=== PATIENT | female | born 1990 | race Caucasian/White ===

== ENCOUNTER 2019-09-27 06:51 | Inpatient (IN) | payer OTHER ==
[2019-09-27] MEDS ORDERED: Sodium Chloride 0.9% 10 ML Syringe FLUSH PRN ×2 (08:11→17:22)
[2019-09-27] MEDS ORDERED: fentaNYL 100 MCG/2 ML SDV IVPUSH PRN (08:11)
[2019-09-27] MEDS ORDERED: Acetaminophen 325 MG Tab PO PRN (08:11)
--- NOTE | 2019-09-27 08:30 | CRLUS ---
Indication: Assess well-being via a biophysical profile prior to induction. Technique: Sonography of the gravid uterus was performed. The examination was performed as a routine biophysical profile. Comparison: None Findings: For breathing movements, a score of 2 was achieved. For gross body movements, a score of 2 was achieved. For tone, a score of 2 was achieved. For amniotic fluid volumes, a score of 2 was achieved. The total score is 8 out of 8 The total CHELA is 12.4 centimeters which is normal heart rate is 124 beats per minute which is normal Current position is cephalic Impression: The biophysical profile score is 8 out of 8. Single live intrauterine gestation that is cephalic. Heart rate 124 bpm which is normal. Total CHELA 12.4 centimeters which is normal Dictated by Randy Orozco MD @ Sep 27 2019 8:26AM Signed by Dr. Randy Orozco @ Sep 27 2019 8:29AM
[2019-09-27] MEDS ORDERED: Misoprostol 50 MCG (1/2 of 100 MCG) Tab VAG ONE ×2 (08:45→13:00)
--- NOTE | 2019-09-27 08:57 | PCM.LDHP ---
L&D History of Present Illness - General Date of Service: 09/27/19 Admit Problem/Dx: Patient Status Order with Admit Dx/Problem 09/27/19 08:11 Patient Status [ADT] Routine Admission Diagnosis/Problem Admission Diagnosis/Problem Source of Information: Patient History Limitations: Reports: No Limitations - Related Data Allergies/Adverse Reactions: Allergies Allergy/AdvReac Type Severity Reaction Status Date / Time cat dander Allergy Rash Verified 09/27/19 08:25 cat's claw Allergy Rash Verified 09/27/19 08:25 dust Allergy Shortness Uncoded 09/27/19 08:25 of Breath Home Medications: Home Meds Iron,Carbonyl [Iron Chews] 09/27/19 [History] Mv-Mn/Iron/FA/Herbal/Digestive [ One Tablet] 09/27/19 [History] Past Medical History - Past Health History Medical/Surgical History: Denies 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: Neurological History: Reports: Concussion, Head Trauma - Infectious Disease History Infectious Disease History: Reports: Chicken Pox - Past Surgical History HEENT Surgical History: Reports: LASIK, Oral Surgery Neurological Surgical History: Reports: None Social & Family History - Family History Family Medical History: Noncontributory - Tobacco Use Smoking Status *Q: Never Smoker Second Hand Smoke Exposure: No - Caffeine Use Caffeine Use: Reports: Coffee, Soda, Tea - Recreational Drug Use Recreational Drug Use: No H&P Review of Systems - Review of Systems: Review Of Systems: See Below General: Reports: No Symptoms HEENT: Reports: No Symptoms Pulmonary: Reports: No Symptoms Cardiovascular: Reports: No Symptoms Gastrointestinal: Reports: No Symptoms Genitourinary: Reports: No Symptoms Musculoskeletal: Reports: No Symptoms Skin: Reports: No Symptoms Psychiatric: Reports: No Symptoms Neurological: Reports: No Symptoms Hematologic/Lymphatic: Reports: No Symptoms Immunologic: Reports: No Symptoms L&D Exam - Exam Exam: See Below - Vital Signs Weight: 84.368 kg - OB Specific Movement: Active Heart Tones: Present Heart Rate (FHR) Variability: Moderate (6-25 bmp) Presentation: Vertex - Castanon Score Castanon Score Cervix Position: Midposition Castanon Score Consistency: Soft Castanon Score Effacement: 51-70% Castanon Score Dilation: 1-2 cm Castanon Score 's Station: -2 Castanon Score Total: 7 - Exam General: Alert, Oriented HEENT: PERRLA, Conjunctiva Clear, EACs Clear, EOMI, Hearing Intact, Mucosa Moist & [place], Nares Patent, Normal Nasal Septum, Posterior Pharynx Clear, Pupils Equal, Pupils Reactive, TMs Clear Neck: Supple, Trachea Midline Lungs: Clear to Auscultation, Normal Respiratory Effort Cardiovascular: Regular Rate, Regular Rhythm GI/Abdominal Exam: Normal Bowel Sounds, Soft, Non-Tender, No Organomegaly, No Distention, No Abnormal Bruit, No Mass, Pelvis Stable Rectal Exam: Normal Exam, Normal Rectal Tone Genitourinary: Normal external exam, Normal bimanual exam, Normal speculum exam Back Exam: Normal Inspection, Full Range of Motion Extremities: Normal Inspection, Normal Range of Motion, Non-Tender, No Pedal Edema, Normal Capillary Refill Skin: Warm, Dry, Intact Neurological: Cranial Nerves Intact, Reflexes Equal Bilateral Psychiatric: Alert, Normal Affect, Normal Mood - Patient Data Lab Results Last 24 hrs: Laboratory Results - last 24 hr 09/27/19 09/27/19 09/27/19 Range/Units 08:30 08:30 08:30 WBC 14.5 H (4.5-11.0) K/uL RBC 4.35 (3.30-5.50) M/uL Hgb 13.5 (12.0-15.0) g/dL Hct 40.1 (36.0-48.0) % MCV 92 (80-98) fL MCH 31 (27-31) pg MCHC 34 (32-36) % Plt Count 267 (150-400) K/uL Neut % (Auto) 64 (36-66) % Lymph % (Auto) 23 L (24-44) % [place] % (Auto) 10 H (2-6) % Eos % (Auto) 3 (2-4) % Baso % (Auto) 0 (0-1) % Urine Color Yellow (YELLOW) Urine Appearance Clear (CLEAR) Urine pH 7.0 (5.0-8.0) Ur Specific [place] 1.015 (1.008-1.030) Urine Protein Negative (NEGATIVE) mg/dL Urine Glucose (UA) Negative (NEGATIVE) mg/dL Urine Ketones Negative (NEGATIVE) mg/dL Urine Occult Blood Negative (NEGATIVE) Urine Nitrite Negative (NEGATIVE) Urine Bilirubin Negative (NEGATIVE) Urine Urobilinogen 0.2 (0.2-1.0) EU/dL Ur Leukocyte Esterase Negative (NEGATIVE) Urine Opiates Screen Negative (NEGATIVE) Ur Oxycodone Screen Negative (NEGATIVE) Urine Methadone Screen Negative (NEGATIVE) Ur Propoxyphene Screen Negative (NEGATIVE) Ur Barbiturates Screen Negative (NEGATIVE) Ur Tricyclics Screen Negative (NEGATIVE) Ur Phencyclidine Scrn Negative (NEGATIVE) Ur Amphetamine Screen Negative (NEGATIVE) U Methamphetamines Scrn Negative (NEGATIVE) Urine MDMA Screen Negative (NEGATIVE) U Benzodiazepines Scrn Negative (NEGATIVE) U Cocaine Metab Screen Negative (NEGATIVE) U Marijuana (THC) Screen Negative (NEGATIVE) Result Diagrams: 09/27/19 08:30 - Problem List (1) SNOMED Code(s): 36115788 ICD Code: Z34.90 - ENCNTR FOR SUPRVSN OF NORMAL , UNSP, UNSP TRIMESTER Status: Acute Current Visit: Yes (2) Encounter for induction of labor SNOMED Code(s): 037589824 ICD Code: Z34.90 - ENCNTR FOR SUPRVSN OF NORMAL , UNSP, UNSP TRIMESTER Status: Acute Current Visit: Yes Problem List Initiated/Reviewed/Updated: Yes Orders Last 24hrs: Active Orders 24 hr Category Date Time Status Patient Status [ADT] Routine ADT 09/27/19 08:11 Active Antiembolic Devices [RC] .Routine Care 09/27/19 08:13 Active Communication Order [RC] ASDIRECTED Care 09/27/19 08:11 Active Heart Tones [RC] PER UNIT ROUTINE Care 09/27/19 08:11 Active Non Stress Test [RC] Click to Edit Care 09/27/19 08:11 Active Notify Provider Vital Signs [RC] PRN Care 09/27/19 08:11 Active Notify Provider [RC] PRN Care 09/27/19 08:11 Active Up ad Ly [RC] ASDIRECTED Care 09/27/19 08:11 Active VTE/DVT Education [RC] Click to Edit Care 09/27/19 08:13 Active Vital Signs [RC] PER UNIT ROUTINE Care 09/27/19 08:11 Active Regular Diet [DIET] Diet 09/27/19 Breakfast Active Acetaminophen [Tylenol] Med 09/27/19 08:11 Active 650 mg PO Q4H PRN Sodium Chloride 0.9% [Saline Flush] Med 09/27/19 08:11 Active 10 ml FLUSH ASDIRECTED PRN fentaNYL [Sublimaze] Med 09/27/19 08:11 Active 100 mcg IVPUSH Q1H PRN DVT/VTE Prophylaxis Reflex [OM.PC] Routine Oth 09/27/19 08:11 Ordered Saline Lock Insert [OM.PC] Routine Oth 09/27/19 08:11 Ordered Resuscitation Status Routine Resus Stat 09/27/19 08:11 Ordered Medication Orders Acetaminophen (Tylenol) 650 mg PO Q4H PRN PRN Reason: Pain (Mild 1-3) and fever Fentanyl (Sublimaze) 100 mcg IVPUSH Q1H PRN PRN Reason: Pain (moderate 4-6) Sodium Chloride (Saline Flush) 10 ml FLUSH ASDIRECTED PRN PRN Reason: Keep Vein Open Assessment/Plan Comment:: 09/27/2019 28 yo here at 39 2/7 weeks gestation for induction of labor due to possible macrosomia of and hip dislocation issues She is agreeable to this plan and desires induction of labor FHTs category one SVE-1-2/70/-2 Cytotec 50mg placed vaginally BPP done prior 04/19, NST reactive Labs-O positive, Hep B neg, Hep C neg, HIV neg, RPR nonreactive, GBS negative, Rubella Immune Plan- Cytotec now Monitor for active labor Monitor FHTs Pain management per patient request Patient up ad ly Patient can eat regular diet Plan and anticipate a vaginal delivery
[2019-09-27] MEDS ORDERED: Lactated Ringers 1,000 ML IV SCH ×3 (12:00→15:00)
[2019-09-27] MEDS ORDERED: ePHEDrine 50 MG/ML SDV IVPUSH PRN (17:22)
[2019-09-27] MEDS ORDERED: diphenhydrAMINE 50 MG/ML SDV IVPUSH PRN ×2 (17:22)
[2019-09-27] MEDS ORDERED: Naloxone 0.4 MG/ML SDV IVPUSH PRN (17:22)
[2019-09-27] MEDS ORDERED: fentaNYL 100 MCG/2 ML SDV ONE (17:24)
[2019-09-27] MEDS ORDERED: Ropivacaine 100 ML ONE (17:24)
[2019-09-27] MEDS ORDERED: Ropivacaine 200 MG in Premix Bag 1 BAG EPIDUR SCH (17:30)
--- NOTE | 2019-09-27 17:35 | PCM.PNLD ---
Labor Progress Note - VS & Meds Vital Signs: Last Vital Signs Temp 36.9 C 09/27/19 16:20 Pulse 81 09/27/19 16:20 Resp 18 09/27/19 16:20 BP 132/82 09/27/19 16:20 Pulse Ox 97 09/27/19 16:20 Active Medications: Current Medications Acetaminophen (Tylenol) 650 mg PO Q4H PRN PRN Reason: Pain (Mild 1-3) and fever Diphenhydramine HCl (Benadryl) 25 mg IVPUSH Q6H PRN PRN Reason: Itching Diphenhydramine HCl (Benadryl) 50 mg IVPUSH Q6H PRN PRN Reason: Itching Ephedrine Sulfate (Ephedrine Sulfate) 10 mg IVPUSH ASDIRECTED PRN PRN Reason: Hypotension Fentanyl (Sublimaze) 100 mcg IVPUSH Q1H PRN PRN Reason: Pain (moderate 4-6) Lactated Ringer's (Ringers, Lactated) 1,000 mls @ 999 mls/hr IV ASDIRECTED [facility] Last Admin: 09/27/19 11:59 Dose: 999 mls/hr Lactated Ringer's (Ringers, Lactated) 1,000 mls @ 999 mls/hr IV ASDIRECTED [facility] Last Infusion: 09/27/19 17:05 Dose: 999 mls/hr Lactated Ringer's (Ringers, Lactated) 1,000 mls @ 125 mls/hr IV ASDIRECTED [facility] Ropivacaine 200 mg/ Premix 100 mls @ 0 mls/hr EPIDUR ASDIRECTED [facility] Oxytocin/Sodium Chloride (Pitocin In Ns 20 Units/1,000 Ml) 20 unit in 1,000 mls @ 999 mls/hr IV ONETIME ONE; Protocol Stop: 09/27/19 18:29 Naloxone HCl (Narcan) 0.1 mg IVPUSH ASDIRECTED PRN PRN Reason: Oversedation Sodium Chloride (Saline Flush) 10 ml FLUSH ASDIRECTED PRN PRN Reason: Keep Vein Open Sodium Chloride (Saline Flush) 10 ml FLUSH ASDIRECTED PRN PRN Reason: Keep Vein Open Discontinued Medications Fentanyl (Sublimaze) Confirm Administered Dose 100 mcg .ROUTE .STK-MED ONE Stop: 09/27/19 17:25 Ropivacaine (Naropin 0.2%) Confirm Administered Dose 100 mls @ as directed .ROUTE .STK-MED ONE Stop: 09/27/19 17:25 Misoprostol (Cytotec) 50 mcg VAG ONETIME ONE Stop: 09/27/19 08:46 Last Admin: 09/27/19 08:35 Dose: 50 mcg Misoprostol (Cytotec) 50 mcg VAG ONETIME ONE Stop: 09/27/19 13:01 Last Admin: 09/27/19 15:26 Dose: Not Given - Uterine Contractions Uterine Monitoring Mode: External [place] Contraction Frequency (min): 1-4 Contraction Duration (sec): 40-70 Contraction Intensity: Moderate Uterine Resting Tone: Soft - Monitoring Heart Rate (FHR) Variability: Moderate (6-25 bmp) Accelerations: Present, 15x15 - Vaginal Exam Dilation (cm): 3 Effacement (Percent): 80 Station: -2 Cervical Position: Midposition Sterile Vaginal Exam Performed By: Brissa Lyons - Labor Progress (Free Text) Labor Progress: 09/27/2019 Patient progressing nicely [id number] FHTs can have minimal variablilty at time. Does get better with bolus and position change. Education done with patient on continuing induction process Patient tolerating pain with position changes and breathing Plan- Continue to monitor labor Continue to monitor FHTs Pain management per patient request Will fluid bolus and patient cant get in the tub. Plan and anticipate a vaginal delivery
--- NOTE | 2019-09-27 17:38 | PCM.PNLD ---
Labor Progress Note - VS & Meds Vital Signs: Last Vital Signs Temp 36.9 C 09/27/19 16:20 Pulse 81 09/27/19 16:20 Resp 18 09/27/19 16:20 BP 132/82 09/27/19 16:20 Pulse Ox 97 09/27/19 16:20 Active Medications: Current Medications Acetaminophen (Tylenol) 650 mg PO Q4H PRN PRN Reason: Pain (Mild 1-3) and fever Diphenhydramine HCl (Benadryl) 25 mg IVPUSH Q6H PRN PRN Reason: Itching Diphenhydramine HCl (Benadryl) 50 mg IVPUSH Q6H PRN PRN Reason: Itching Ephedrine Sulfate (Ephedrine Sulfate) 10 mg IVPUSH ASDIRECTED PRN PRN Reason: Hypotension Fentanyl (Sublimaze) 100 mcg IVPUSH Q1H PRN PRN Reason: Pain (moderate 4-6) Lactated Ringer's (Ringers, Lactated) 1,000 mls @ 999 mls/hr IV ASDIRECTED [facility] Last Admin: 09/27/19 11:59 Dose: 999 mls/hr Lactated Ringer's (Ringers, Lactated) 1,000 mls @ 999 mls/hr IV ASDIRECTED [facility] Last Infusion: 09/27/19 17:05 Dose: 999 mls/hr Lactated Ringer's (Ringers, Lactated) 1,000 mls @ 125 mls/hr IV ASDIRECTED [facility] Ropivacaine 200 mg/ Premix 100 mls @ 0 mls/hr EPIDUR ASDIRECTED [facility] Oxytocin/Sodium Chloride (Pitocin In Ns 20 Units/1,000 Ml) 20 unit in 1,000 mls @ 999 mls/hr IV ONETIME ONE; Protocol Stop: 09/27/19 18:29 Naloxone HCl (Narcan) 0.1 mg IVPUSH ASDIRECTED PRN PRN Reason: Oversedation Sodium Chloride (Saline Flush) 10 ml FLUSH ASDIRECTED PRN PRN Reason: Keep Vein Open Sodium Chloride (Saline Flush) 10 ml FLUSH ASDIRECTED PRN PRN Reason: Keep Vein Open Discontinued Medications Fentanyl (Sublimaze) Confirm Administered Dose 100 mcg .ROUTE .STK-MED ONE Stop: 09/27/19 17:25 Ropivacaine (Naropin 0.2%) Confirm Administered Dose 100 mls @ as directed .ROUTE .STK-MED ONE Stop: 09/27/19 17:25 Misoprostol (Cytotec) 50 mcg VAG ONETIME ONE Stop: 09/27/19 08:46 Last Admin: 09/27/19 08:35 Dose: 50 mcg Misoprostol (Cytotec) 50 mcg VAG ONETIME ONE Stop: 09/27/19 13:01 Last Admin: 09/27/19 15:26 Dose: Not Given - Uterine Contractions Uterine Monitoring Mode: External [place] Contraction Frequency (min): 1-4 Contraction Duration (sec): 40-70 Contraction Intensity: Moderate Uterine Resting Tone: Soft - Monitoring Heart Rate (FHR) Variability: Moderate (6-25 bmp) Accelerations: Present, 15x15 - Vaginal Exam Dilation (cm): 4 Effacement (Percent): 90 Station: -2 Cervical Position: Midposition Sterile Vaginal Exam Performed By: Brissa Lyons - Labor Progress (Free Text) Labor Progress: 09/27/2019 Nurse called provider for late decelerations SVE-4/90/-2 Late decelerations resolved with position change, O2 and fluid bolus Discussed not doing any more medication at this time Discussed possibility of if lates were to start again Both patient and her spouse verbalized understanding
--- NOTE | 2019-09-27 17:39 | PCM.PNLD ---
Labor Progress Note - VS & Meds Vital Signs: Last Vital Signs Temp 36.9 C 09/27/19 16:20 Pulse 81 09/27/19 16:20 Resp 18 09/27/19 16:20 BP 132/82 09/27/19 16:20 Pulse Ox 97 09/27/19 16:20 Active Medications: Current Medications Acetaminophen (Tylenol) 650 mg PO Q4H PRN PRN Reason: Pain (Mild 1-3) and fever Diphenhydramine HCl (Benadryl) 25 mg IVPUSH Q6H PRN PRN Reason: Itching Diphenhydramine HCl (Benadryl) 50 mg IVPUSH Q6H PRN PRN Reason: Itching Ephedrine Sulfate (Ephedrine Sulfate) 10 mg IVPUSH ASDIRECTED PRN PRN Reason: Hypotension Fentanyl (Sublimaze) 100 mcg IVPUSH Q1H PRN PRN Reason: Pain (moderate 4-6) Lactated Ringer's (Ringers, Lactated) 1,000 mls @ 999 mls/hr IV ASDIRECTED [facility] Last Admin: 09/27/19 11:59 Dose: 999 mls/hr Lactated Ringer's (Ringers, Lactated) 1,000 mls @ 999 mls/hr IV ASDIRECTED [facility] Last Infusion: 09/27/19 17:05 Dose: 999 mls/hr Lactated Ringer's (Ringers, Lactated) 1,000 mls @ 125 mls/hr IV ASDIRECTED [facility] Ropivacaine 200 mg/ Premix 100 mls @ 0 mls/hr EPIDUR ASDIRECTED [facility] Oxytocin/Sodium Chloride (Pitocin In Ns 20 Units/1,000 Ml) 20 unit in 1,000 mls @ 999 mls/hr IV ONETIME ONE; Protocol Stop: 09/27/19 18:29 Naloxone HCl (Narcan) 0.1 mg IVPUSH ASDIRECTED PRN PRN Reason: Oversedation Sodium Chloride (Saline Flush) 10 ml FLUSH ASDIRECTED PRN PRN Reason: Keep Vein Open Sodium Chloride (Saline Flush) 10 ml FLUSH ASDIRECTED PRN PRN Reason: Keep Vein Open Discontinued Medications Fentanyl (Sublimaze) Confirm Administered Dose 100 mcg .ROUTE .STK-MED ONE Stop: 09/27/19 17:25 Ropivacaine (Naropin 0.2%) Confirm Administered Dose 100 mls @ as directed .ROUTE .STK-MED ONE Stop: 09/27/19 17:25 Misoprostol (Cytotec) 50 mcg VAG ONETIME ONE Stop: 09/27/19 08:46 Last Admin: 09/27/19 08:35 Dose: 50 mcg Misoprostol (Cytotec) 50 mcg VAG ONETIME ONE Stop: 09/27/19 13:01 Last Admin: 09/27/19 15:26 Dose: Not Given - Uterine Contractions Uterine Monitoring Mode: External [place] Contraction Frequency (min): 1-4 Contraction Duration (sec): 40-70 Contraction Intensity: Moderate Uterine Resting Tone: Soft - Monitoring Heart Rate (FHR) Variability: Moderate (6-25 bmp) Accelerations: Present, 15x15 - Vaginal Exam Dilation (cm): 5-6 Effacement (Percent): 90 Station: -2 Cervical Position: Anterior Sterile Vaginal Exam Performed By: Brissa Lyons Vaginal Exam Comment: Patient desires epidural - Labor Progress (Free Text) Labor Progress: 09/27/2019 Patient progressing nicely SVE-5-6/90/-1 FHTs category one Contractions regular Patient requesting and epidural Plan- Continue to monitor labor Continue to monitor FHTs Epidural per patient request Plan and anticipate a vaginal delivery
--- NOTE | 2019-09-27 19:17 | PROC ---
DATE OF PROCEDURE: 09/27/2019 SURGEON: Flavio Elias CRNA TIME: Approximately 1800 hours. NAME OF PROCEDURE: Epidural placement for difficult labor. INDICATION: I was called by OB to evaluate the patient for epidural placement. The patient is informed as to how epidurals are placed and how they work. We discussed the risks and benefits. PROCEDURE IN DETAIL: She was placed in a sitting position. Her back was prepped with Betadine x3. I placed a 3 mL skin wheal and another 2 mL into the deeper tissue at approximately L3-L4. I placed a 17-gauge Tuohy needle epidural into the space showing good loss of resistance. I was unable to aspirate blood, fluid, or air. She was then given a bolus of 5 mL of 1.5% Xylocaine with epinephrine and 2 mL of fentanyl equalling 100 mcg. An epidural catheter was then easily threaded 2 to 3 cm into that epidural space over the catheter. The epidural catheter was brought up over her left shoulder and taped securely in place. The patient suffered no paresthesia and no discomfort. Her vital signs were stable, and she will proceed with her labor which they will then contact me if they need further assistance. Flavio Elias CRNA /[id number]
[2019-09-27] MEDS ORDERED: Oxytocin 10 Units/1 ML SDV ONE (19:57)
[2019-09-27] MEDS ORDERED: Lidocaine 1% 50 ML MDV ONE (19:58)
[2019-09-27] MEDS ORDERED: Docusate Sodium 100 MG Cap PO PRN (21:46)
[2019-09-27] MEDS ORDERED: Acetaminophen 325 MG Tab, 50 Tab Bulk Bottle PO PRN (21:46)
[2019-09-27] MEDS ORDERED: Lanolin 100% Cream 40 GM Tube TOP ONE (21:46)
[2019-09-27] MEDS ORDERED: Witch Hazel Medicated Pads 100/Jar TOP ONE (21:46)
[2019-09-27] MEDS ORDERED: Ibuprofen 200 MG Tab, 24 Tab Bulk Bottle PO PRN (21:46)
[2019-09-27] MEDS ORDERED: Benzocaine 20% Top Spray 56 GM Bottle TOP ONE (21:46)
--- NOTE | 2019-09-27 22:35 | PCM.DEL ---
L & D Note - General Info Date of Service: 09/27/19 Mother's Due Date: 10/02/19 - Delivery Note Labor: Augmented by ARM Cervical Ripening Method: Misoprostil Delivery Outcome: Livebirth Delivery Method: Spontaneous Vaginal Delivery-Single Infant Delivery Mode: Spontaneous Presentation: Left Occiput Anterior (NAZARIO) Nuchal Cord: Present, Reduced Anesthesia Type: Epidural, Nitrous Oxide Amniotic Fluid Description: Meconium Stained Episiotomy Type: None Laceration: None Placenta: Intact, Spontaneous, Meconium Stained Cord: 3 Vessels Estimated Blood Loss: 200 Resuscitation Needed: No : Bulb Syringe, Stimulated, Warmed Score 1 min: 8 Score 5 min: 9 Second Stage Interventions: Reports: Second Nurse Assessed Progress of Descent, Second Nurse Reviewed Contraction Pattern, Second Nurse Reviewed Heart Tones, Encouragement Given, Laboring Down, Pushing Effectively, Pushing, Knee Chest Position, Pushing, McRobert's Position Delivery Comments (Free Text/Narrative):: 09/27/2019 28 yo delivered a viable female at 2124 on 09/27/2019 normal spontaneous vaginal delivery in NAZARIO position over an intact perineum without complications. delivered head then a loose nuchal reduced easily then shoulders came with an easy push, then placed on prewarmed blanket on mothers abdomen. Infant was slightly stunned so cord was double clamped and cut to bring infant to warmer for initial assessment. than began to cry. was then brought back to mother for skin to skin. APGARS-8/9, weight-7lbs 4oz, length-20 inches, bulb suction, warmed, dried and stimulated. did need two deep suctions with meconium color fluid 7ml. Placenta intact spontaneous, meconium stained, EBL-200ml. Two small skid hutchinson on labia , not bleeding. No lacerations noted of perineum, vagina, rectum, or cervix. Mother now holding infant skin to skin and stable at this time in labor and delivery room. - General Info Date of Service: 09/27/19 Functional Status: Reports: Pain Controlled - Review of Systems General: Reports: No Symptoms HEENT: Reports: No Symptoms Pulmonary: Reports: No Symptoms Cardiovascular: Reports: No Symptoms Gastrointestinal: Reports: No Symptoms Genitourinary: Reports: No Symptoms Musculoskeletal: Reports: No Symptoms Skin: Reports: No Symptoms Neurological: Reports: No Symptoms Psychiatric: Reports: No Symptoms - Patient Data Vitals - Most Recent: Last Vital Signs Temp 36.8 C 09/27/19 19:13 Pulse 88 09/27/19 22:00 Resp 18 09/27/19 22:00 BP 115/66 09/27/19 22:00 Pulse Ox 99 09/27/19 19:13 Weight - Most Recent: 84.368 kg I&O - Last 24 Hours: Intake & Output 09/27/19 09/27/19 09/27/19 06:59 14:59 22:59 Intake Total 1120 2246 Output Total 100 650 Balance 1020 1596 Lab Results Last 24 Hours: Laboratory Results - last 24 hr 09/27/19 09/27/19 09/27/19 Range/Units 08:30 08:30 08:30 WBC 14.5 H (4.5-11.0) K/uL RBC 4.35 (3.30-5.50) M/uL Hgb 13.5 (12.0-15.0) g/dL Hct 40.1 (36.0-48.0) % MCV 92 (80-98) fL MCH 31 (27-31) pg MCHC 34 (32-36) % Plt Count 267 (150-400) K/uL Neut % (Auto) 64 (36-66) % Lymph % (Auto) 23 L (24-44) % [place] % (Auto) 10 H (2-6) % Eos % (Auto) 3 (2-4) % Baso % (Auto) 0 (0-1) % Urine Color Yellow (YELLOW) Urine Appearance Clear (CLEAR) Urine pH 7.0 (5.0-8.0) Ur Specific [place] 1.015 (1.008-1.030) Urine Protein Negative (NEGATIVE) mg/dL Urine Glucose (UA) Negative (NEGATIVE) mg/dL Urine Ketones Negative (NEGATIVE) mg/dL Urine Occult Blood Negative (NEGATIVE) Urine Nitrite Negative (NEGATIVE) Urine Bilirubin Negative (NEGATIVE) Urine Urobilinogen 0.2 (0.2-1.0) EU/dL Ur Leukocyte Esterase Negative (NEGATIVE) Urine Opiates Screen Negative (NEGATIVE) Ur Oxycodone Screen Negative (NEGATIVE) Urine Methadone Screen Negative (NEGATIVE) Ur Propoxyphene Screen Negative (NEGATIVE) Ur Barbiturates Screen Negative (NEGATIVE) Ur Tricyclics Screen Negative (NEGATIVE) Ur Phencyclidine Scrn Negative (NEGATIVE) Ur Amphetamine Screen Negative (NEGATIVE) U Methamphetamines Scrn Negative (NEGATIVE) Urine MDMA Screen Negative (NEGATIVE) U Benzodiazepines Scrn Negative (NEGATIVE) U Cocaine Metab Screen Negative (NEGATIVE) U Marijuana (THC) Screen Negative (NEGATIVE) Med Orders - Current: Current Medications Acetaminophen (Tylenol Bulk Bottle) 0 mg PO Q4H PRN PRN Reason: Pain Diphenhydramine HCl (Benadryl) 25 mg IVPUSH Q6H PRN PRN Reason: Itching Diphenhydramine HCl (Benadryl) 50 mg IVPUSH Q6H PRN PRN Reason: Itching Docusate Sodium (Colace) 100 mg PO BID PRN PRN Reason: Constipation Ephedrine Sulfate (Ephedrine Sulfate) 10 mg IVPUSH ASDIRECTED PRN PRN Reason: Hypotension Fentanyl (Sublimaze) 100 mcg IVPUSH Q1H PRN PRN Reason: Pain (moderate 4-6) Lactated Ringer's (Ringers, Lactated) 1,000 mls @ 999 mls/hr IV ASDIRECTED [facility] Last Admin: 09/27/19 11:59 Dose: 999 mls/hr Lactated Ringer's (Ringers, Lactated) 1,000 mls @ 999 mls/hr IV ASDIRECTED [facility] Last Infusion: 09/27/19 17:05 Dose: 999 mls/hr Lactated Ringer's (Ringers, Lactated) 1,000 mls @ 125 mls/hr IV ASDIRECTED [facility] Ropivacaine 200 mg/ Premix 100 mls @ 0 mls/hr EPIDUR ASDIRECTED [facility] Ibuprofen (Motrin Bulk Bottle) 600 mg PO Q6H PRN PRN Reason: Pain Naloxone HCl (Narcan) 0.1 mg IVPUSH ASDIRECTED PRN PRN Reason: Oversedation Sodium Chloride (Saline Flush) 10 ml FLUSH ASDIRECTED PRN PRN Reason: Keep Vein Open Sodium Chloride (Saline Flush) 10 ml FLUSH ASDIRECTED PRN PRN Reason: Keep Vein Open Discontinued Medications Acetaminophen (Tylenol) 650 mg PO Q4H PRN PRN Reason: Pain (Mild 1-3) and fever Benzocaine ([id number] 20% [place]) 0 gm TOP ONETIME ONE Stop: 09/27/19 21:47 Emollient Ointment (Lansinoh Hpa) 1 gm TOP ONETIME ONE Stop: 09/27/19 21:47 Fentanyl (Sublimaze) Confirm Administered Dose 100 mcg .ROUTE .STK-MED ONE Stop: 09/27/19 17:25 Ropivacaine (Naropin 0.2%) Confirm Administered Dose 100 mls @ as directed .ROUTE .STK-MED ONE Stop: 09/27/19 17:25 Oxytocin/Sodium Chloride (Pitocin In Ns 20 Units/1,000 Ml) 20 unit in 1,000 mls @ 999 mls/hr IV ONETIME ONE; Protocol Stop: 09/27/19 18:29 Last Admin: 09/27/19 19:01 Dose: 999 mls/hr, 999 mls/hr Lidocaine HCl (Xylocaine 1%) Confirm Administered Dose 100 ml .ROUTE .STK-MED ONE Stop: 09/27/19 19:59 Misoprostol (Cytotec) 50 mcg VAG ONETIME ONE Stop: 09/27/19 08:46 Last Admin: 09/27/19 08:35 Dose: 50 mcg Misoprostol (Cytotec) 50 mcg VAG ONETIME ONE Stop: 09/27/19 13:01 Last Admin: 09/27/19 15:26 Dose: Not Given Oxytocin (Pitocin) Confirm Administered Dose 10 unit .ROUTE .STK-MED ONE Stop: 09/27/19 19:58 Witch Giulia (Tucks) 1 pad TOP ONETIME ONE Stop: 09/27/19 21:47 - Exam General: Alert, Oriented, Cooperative HEENT: Pupils Equal, Pupils Reactive, EOMI, Mucous Membr. Moist/[place] Neck: Supple Lungs: Clear to Auscultation, Normal Respiratory Effort Cardiovascular: Regular Rate, Regular Rhythm GI/Abdominal Exam: Normal Bowel Sounds, Soft, Non-Tender, No Organomegaly, No Distention, No Abnormal Bruit, No Mass, Pelvis Stable (Female) Exam: Normal External Exam, Normal Speculum Exam, Normal Bimanual Exam, Enlarged Uterus, Vaginal Bleeding Back Exam: Normal Inspection, Full Range of Motion Extremities: Normal Inspection, Normal Range of Motion, Non-Tender, No Pedal Edema, Normal Capillary Refill Skin: Warm, Dry, Intact Neurological: No New Focal Deficit Psy/Mental Status: Alert, Normal Affect, Normal Mood - Problem List & Annotations (1) SNOMED Code(s): 63723022 Code(s): Z34.90 - ENCNTR FOR SUPRVSN OF NORMAL , UNSP, UNSP TRIMESTER Status: Acute Current Visit: Yes (2) Encounter for induction of labor SNOMED Code(s): 482968885 Code(s): Z34.90 - ENCNTR FOR SUPRVSN OF NORMAL , UNSP, UNSP TRIMESTER Status: Acute Current Visit: Yes (3) Vaginal delivery SNOMED Code(s): 782557237 Code(s): O80 - ENCOUNTER FOR FULL-TERM UNCOMPLICATED DELIVERY Status: Acute Current Visit: Yes (4) Thin meconium stained amniotic fluid SNOMED Code(s): 566545285 Code(s): P96.83 - MECONIUM STAINING Status: Acute Current Visit: Yes (5) Labor and delivery complicated by meconium in amniotic fluid SNOMED Code(s): 952335141 Code(s): O77.0 - LABOR AND DELIVERY COMPLICATED BY MECONIUM IN AMNIOTIC FLUID Status: Acute Current Visit: Yes (6) () SNOMED Code(s): 405694456 Code(s): Z78.9 - OTHER SPECIFIED HEALTH STATUS Status: Acute Current Visit: Yes - Problem List Review Problem List Initiated/Reviewed/Updated: Yes - My Orders Last 24 Hours: My Active Orders 09/27/19 08:11 Patient Status [ADT] Routine Communication Order [RC] ASDIRECTED Notify Provider Vital Signs [RC] PRN Notify Provider [RC] PRN Up ad [place] [RC] ASDIRECTED Sodium Chloride 0.9% [Saline Flush] 10 ml FLUSH ASDIRECTED PRN fentaNYL [Sublimaze] 100 mcg IVPUSH Q1H PRN DVT/VTE Prophylaxis Reflex [OM.PC] Routine Saline Lock Insert [OM.PC] Routine Resuscitation Status Routine 09/27/19 08:13 Antiembolic Devices [RC] .Routine VTE/DVT Education [RC] Click to Edit 09/27/19 12:00 Lactated Ringers [Ringers, Lactated] 1,000 ml IV ASDIRECTED 09/27/19 14:15 Lactated Ringers [Ringers, Lactated] 1,000 ml IV ASDIRECTED 09/27/19 15:00 Lactated Ringers [Ringers, Lactated] 1,000 ml IV ASDIRECTED 09/27/19 15:43 Communication Order [RC] Per Unit Routine Oxygen Therapy [RC] ASDIRECTED Vital Signs [RC] PER UNIT ROUTINE Medication Discontinuation Instructions [OM.PC] Routine 09/27/19 17:22 Communication Order [RC] ROUTINE Communication Order [RC] ROUTINE Communication Order [RC] ROUTINE PCEA Epidural [RC] ASDIRECTED Peripheral IV Care [RC] . DIRECTED Pulse Oximetry [RC] ASDIRECTED Naloxone [Narcan] 0.1 mg IVPUSH ASDIRECTED PRN Sodium Chloride 0.9% [Saline Flush] 10 ml FLUSH ASDIRECTED PRN diphenhydrAMINE [Benadryl] 25 mg IVPUSH Q6H PRN diphenhydrAMINE [Benadryl] 50 mg IVPUSH Q6H PRN ePHEDrine [ePHEDrine sulfate] 10 mg IVPUSH ASDIRECTED PRN Epidural Catheter Management [OM.PC] Routine Peripheral IV Insertion Pediatric [OM.PC] Routine 09/27/19 17:30 Ropivacaine [Naropin 0.2%] 200 mg Premix Bag 1 bag EPIDUR ASDIRECTED 09/27/19 21:46 Patient Status [ADT] Routine Acetaminophen [Tylenol Bulk Bottle] See Dose Instructions PO Q4H PRN Docusate Sodium [Colace] 100 mg PO BID PRN Ibuprofen [Motrin Bulk Bottle] 600 mg PO Q6H PRN Assess Lochia [WOMSER] Per Unit Routine Assess Uterine Involution [WOMSER] Per Unit Routine Ice Therapy [OM.PC] Per Unit Routine Perineal Care [OM.PC] Per Unit Routine Sitz Bath [OM.PC] Per Unit Routine 09/27/19 Breakfast Regular Diet [DIET] 09/28/19 06:00 CBC WITH AUTO DIFF [HEME] Routine - Assessment Assessment:: 09/27/2019 28 yo G1 now P1 delivered without complications - Plan Plan:: 09/27/2019 28 yo here at 39 2/7 weeks gestation for induction of labor due to possible macrosomia of and hip dislocation issues She is agreeable to this plan and desires induction of labor FHTs category one SVE-1-2/70/-2 Cytotec 50mg placed vaginally BPP done prior 04/19, NST reactive Labs-O positive, Hep B neg, Hep C neg, HIV neg, RPR nonreactive, GBS negative, Rubella Immune Plan- Cytotec now Monitor for active labor Monitor FHTs Pain management per patient request Patient up ad [place] Patient can eat regular diet Plan and anticipate a vaginal delivery 09/27/2019 Routine cares Encourage and support Plan discharge in 24-72 hours
[2019-09-28] MEDS ORDERED: Acetaminophen 325 MG Tab, 50 Tab Bulk Bottle PO PRN (07:30)
--- NOTE | 2019-09-28 07:44 | PCM.PNPP ---
- General Info Date of Service: 09/28/19 Functional Status: Reports: Pain Controlled - Review of Systems General: Reports: No Symptoms HEENT: Reports: No Symptoms Pulmonary: Reports: No Symptoms Cardiovascular: Reports: No Symptoms Gastrointestinal: Reports: No Symptoms Genitourinary: Reports: No Symptoms Musculoskeletal: Reports: No Symptoms Skin: Reports: No Symptoms Neurological: Reports: No Symptoms Psychiatric: Reports: No Symptoms - General Info Date of Service: 09/28/19 - Patient Data Vital Signs - Most Recent: Last Vital Signs Temp 36.7 C 09/28/19 07:31 Pulse 83 09/28/19 07:31 Resp 18 09/28/19 07:31 BP 114/72 09/28/19 07:31 Pulse Ox 98 09/28/19 07:31 Weight - Most Recent: 84.368 kg I&O - Last 24 Hours: Intake & Output 09/27/19 09/28/19 09/28/19 22:59 06:59 14:59 Intake Total 2246 745 Output Total 650 Balance 1596 745 Lab Results - Last 24 Hours: Laboratory Results - last 24 hr 09/27/19 09/27/19 09/27/19 Range/Units 08:30 08:30 08:30 WBC 14.5 H (4.5-11.0) K/uL RBC 4.35 (3.30-5.50) M/uL Hgb 13.5 (12.0-15.0) g/dL Hct 40.1 (36.0-48.0) % MCV 92 (80-98) fL MCH 31 (27-31) pg MCHC 34 (32-36) % Plt Count 267 (150-400) K/uL Neut % (Auto) 64 (36-66) % Lymph % (Auto) 23 L (24-44) % [place] % (Auto) 10 H (2-6) % Eos % (Auto) 3 (2-4) % Baso % (Auto) 0 (0-1) % Urine Color Yellow (YELLOW) Urine Appearance Clear (CLEAR) Urine pH 7.0 (5.0-8.0) Ur Specific [place] 1.015 (1.008-1.030) Urine Protein Negative (NEGATIVE) mg/dL Urine Glucose (UA) Negative (NEGATIVE) mg/dL Urine Ketones Negative (NEGATIVE) mg/dL Urine Occult Blood Negative (NEGATIVE) Urine Nitrite Negative (NEGATIVE) Urine Bilirubin Negative (NEGATIVE) Urine Urobilinogen 0.2 (0.2-1.0) EU/dL Ur Leukocyte Esterase Negative (NEGATIVE) Urine Opiates Screen Negative (NEGATIVE) Ur Oxycodone Screen Negative (NEGATIVE) Urine Methadone Screen Negative (NEGATIVE) Ur Propoxyphene Screen Negative (NEGATIVE) Ur Barbiturates Screen Negative (NEGATIVE) Ur Tricyclics Screen Negative (NEGATIVE) Ur Phencyclidine Scrn Negative (NEGATIVE) Ur Amphetamine Screen Negative (NEGATIVE) U Methamphetamines Scrn Negative (NEGATIVE) Urine MDMA Screen Negative (NEGATIVE) U Benzodiazepines Scrn Negative (NEGATIVE) U Cocaine Metab Screen Negative (NEGATIVE) U Marijuana (THC) Screen Negative (NEGATIVE) 09/28/19 Range/Units 06:15 WBC 16.9 H (4.5-11.0) K/uL RBC 3.83 (3.30-5.50) M/uL Hgb 11.9 L (12.0-15.0) g/dL Hct 36.0 (36.0-48.0) % MCV 94 (80-98) fL MCH 31 (27-31) pg MCHC 33 (32-36) % Plt Count 243 (150-400) K/uL Neut % (Auto) 74 H (36-66) % Lymph % (Auto) 15 L (24-44) % [place] % (Auto) 10 H (2-6) % Eos % (Auto) 1 L (2-4) % Baso % (Auto) 0 (0-1) % Urine Color (YELLOW) Urine Appearance (CLEAR) Urine pH (5.0-8.0) Ur Specific [place] (1.008-1.030) Urine Protein (NEGATIVE) mg/dL Urine Glucose (UA) (NEGATIVE) mg/dL Urine Ketones (NEGATIVE) mg/dL Urine Occult Blood (NEGATIVE) Urine Nitrite (NEGATIVE) Urine Bilirubin (NEGATIVE) Urine Urobilinogen (0.2-1.0) EU/dL Ur Leukocyte Esterase (NEGATIVE) Urine Opiates Screen (NEGATIVE) Ur Oxycodone Screen (NEGATIVE) Urine Methadone Screen (NEGATIVE) Ur Propoxyphene Screen (NEGATIVE) Ur Barbiturates Screen (NEGATIVE) Ur Tricyclics Screen (NEGATIVE) Ur Phencyclidine Scrn (NEGATIVE) Ur Amphetamine Screen (NEGATIVE) U Methamphetamines Scrn (NEGATIVE) Urine MDMA Screen (NEGATIVE) U Benzodiazepines Scrn (NEGATIVE) U Cocaine Metab Screen (NEGATIVE) U Marijuana (THC) Screen (NEGATIVE) Med Orders - Current: Current Medications Acetaminophen (Tylenol Bulk Bottle) 325 - 650 mg PO Q4H PRN PRN Reason: Pain Diphenhydramine HCl (Benadryl) 25 mg IVPUSH Q6H PRN PRN Reason: Itching Diphenhydramine HCl (Benadryl) 50 mg IVPUSH Q6H PRN PRN Reason: Itching Docusate Sodium (Colace) 100 mg PO BID PRN PRN Reason: Constipation Ephedrine Sulfate (Ephedrine Sulfate) 10 mg IVPUSH ASDIRECTED PRN PRN Reason: Hypotension Fentanyl (Sublimaze) 100 mcg IVPUSH Q1H PRN PRN Reason: Pain (moderate 4-6) Lactated Ringer's (Ringers, Lactated) 1,000 mls @ 125 mls/hr IV ASDIRECTED [facility] Ropivacaine 200 mg/ Premix 100 mls @ 0 mls/hr EPIDUR ASDIRECTED [facility] Ibuprofen (Motrin Bulk Bottle) 600 mg PO Q6H PRN PRN Reason: Pain Last Admin: 09/27/19 23:25 Dose: 600 mg Naloxone HCl (Narcan) 0.1 mg IVPUSH ASDIRECTED PRN PRN Reason: Oversedation Sodium Chloride (Saline Flush) 10 ml FLUSH ASDIRECTED PRN PRN Reason: Keep Vein Open Discontinued Medications Acetaminophen (Tylenol) 650 mg PO Q4H PRN PRN Reason: Pain (Mild 1-3) and fever Acetaminophen (Tylenol Bulk Bottle) 0 mg PO Q4H PRN PRN Reason: Pain Stop: 09/28/19 07:30 Last Admin: 09/27/19 23:26 Dose: 650 mg Benzocaine ([id number]-[id number]-[id number] 20% [place]) 0 gm TOP ONETIME ONE Stop: 09/27/19 21:47 Last Admin: 09/27/19 23:23 Dose: 1 spray Emollient Ointment (Lansinoh Hpa) 1 gm TOP ONETIME ONE Stop: 09/27/19 21:47 Last Admin: 09/27/19 23:22 Dose: 1 applic Fentanyl (Sublimaze) Confirm Administered Dose 100 mcg .ROUTE .STK-MED ONE Stop: 09/27/19 17:25 Lactated Ringer's (Ringers, Lactated) 1,000 mls @ 999 mls/hr IV ASDIRECTED [facility] Last Admin: 09/27/19 11:59 Dose: 999 mls/hr Lactated Ringer's (Ringers, Lactated) 1,000 mls @ 999 mls/hr IV ASDIRECTED [facility] Last Infusion: 09/27/19 17:05 Dose: 999 mls/hr Ropivacaine (Naropin 0.2%) Confirm Administered Dose 100 mls @ as directed .ROUTE .STK-MED ONE Stop: 09/27/19 17:25 Oxytocin/Sodium Chloride (Pitocin In Ns 20 Units/1,000 Ml) 20 unit in 1,000 mls @ 999 mls/hr IV ONETIME ONE; Protocol Stop: 09/27/19 18:29 Last Admin: 09/27/19 19:01 Dose: 999 mls/hr, 999 mls/hr Lidocaine HCl (Xylocaine 1%) Confirm Administered Dose 100 ml .ROUTE .STK-MED ONE Stop: 09/27/19 19:59 Last Admin: 09/27/19 23:02 Dose: Not Given Misoprostol (Cytotec) 50 mcg VAG ONETIME ONE Stop: 09/27/19 08:46 Last Admin: 09/27/19 08:35 Dose: 50 mcg Misoprostol (Cytotec) 50 mcg VAG ONETIME ONE Stop: 09/27/19 13:01 Last Admin: 09/27/19 15:26 Dose: Not Given Oxytocin (Pitocin) Confirm Administered Dose 10 unit .ROUTE .STK-MED ONE Stop: 09/27/19 19:58 Last Admin: 09/27/19 23:02 Dose: Not Given Witch Giulia (Tucks) 1 pad TOP ONETIME ONE Stop: 09/27/19 21:47 Last Admin: 09/27/19 23:23 Dose: 1 applicful - Infant Interaction Disposition, : at Bedside Interaction: Holding Infant Feeding: Breastfed ; Nursed Well Support Person: - Recovery Exam Fundal Tone: Firm Fundal Level: At Umbilicus Fundal Placement: Midline Lochia Amount: Moderate Lochia Color: Rubra/Red Episiotomy/Laceration: None - Exam General: Alert, Oriented HEENT: Pupils Equal, Pupils Reactive, EOMI, Mucous Membr. Moist/[place] Neck: Supple Lungs: Clear to Auscultation, Normal Respiratory Effort Cardiovascular: Regular Rate, Regular Rhythm GI/Abdominal Exam: Normal Bowel Sounds, Soft, Non-Tender, No Organomegaly, No Distention, No Abnormal Bruit, No Mass, Pelvis Stable Extremities: Normal Inspection, Normal Range of Motion, Non-Tender, No Pedal Edema, Normal Capillary Refill Skin: Warm, Dry, Intact Neurological: No New Focal Deficit Psy/Mental Status: Alert, Normal Affect, Normal Mood - Problem List & Annotations (1) SNOMED Code(s): 84757286 Code(s): Z34.90 - ENCNTR FOR SUPRVSN OF NORMAL , UNSP, UNSP TRIMESTER Status: Acute Current Visit: Yes (2) Encounter for induction of labor SNOMED Code(s): 950905459 Code(s): Z34.90 - ENCNTR FOR SUPRVSN OF NORMAL , UNSP, UNSP TRIMESTER Status: Acute Current Visit: Yes (3) Vaginal delivery SNOMED Code(s): 643858667 Code(s): O80 - ENCOUNTER FOR FULL-TERM UNCOMPLICATED DELIVERY Status: Acute Current Visit: Yes (4) Thin meconium stained amniotic fluid SNOMED Code(s): 359030276 Code(s): P96.83 - MECONIUM STAINING Status: Acute Current Visit: Yes (5) Labor and delivery complicated by meconium in amniotic fluid SNOMED Code(s): 022695714 Code(s): O77.0 - LABOR AND DELIVERY COMPLICATED BY MECONIUM IN AMNIOTIC FLUID Status: Acute Current Visit: Yes (6) (infant) SNOMED Code(s): 760819724 Code(s): Z78.9 - OTHER SPECIFIED HEALTH STATUS Status: Acute Current Visit: Yes - Problem List Review Problem List Initiated/Reviewed/Updated: Yes - My Orders Last 24 Hours: My Active Orders 09/27/19 08:11 Patient Status [ADT] Routine Notify Provider Vital Signs [RC] PRN Notify Provider [RC] PRN Up ad [place] [RC] ASDIRECTED Sodium Chloride 0.9% [Saline Flush] 10 ml FLUSH ASDIRECTED PRN fentaNYL [Sublimaze] 100 mcg IVPUSH Q1H PRN DVT/VTE Prophylaxis Reflex [OM.PC] Routine Saline Lock Insert [OM.PC] Routine Resuscitation Status Routine 09/27/19 08:13 Antiembolic Devices [RC] .Routine VTE/DVT Education [RC] Click to Edit 09/27/19 15:00 Lactated Ringers [Ringers, Lactated] 1,000 ml IV ASDIRECTED 09/27/19 15:43 Oxygen Therapy [RC] ASDIRECTED Vital Signs [RC] PER UNIT ROUTINE Medication Discontinuation Instructions [OM.PC] Routine 09/27/19 17:22 Peripheral IV Care [RC] . DIRECTED Pulse Oximetry [RC] ASDIRECTED Naloxone [Narcan] 0.1 mg IVPUSH ASDIRECTED PRN diphenhydrAMINE [Benadryl] 25 mg IVPUSH Q6H PRN diphenhydrAMINE [Benadryl] 50 mg IVPUSH Q6H PRN ePHEDrine [ePHEDrine sulfate] 10 mg IVPUSH ASDIRECTED PRN Epidural Catheter Management [OM.PC] Routine Peripheral IV Insertion Pediatric [OM.PC] Routine 09/27/19 17:30 Ropivacaine [Naropin 0.2%] 200 mg Premix Bag 1 bag EPIDUR ASDIRECTED 09/27/19 21:46 Patient Status [ADT] Routine Docusate Sodium [Colace] 100 mg PO BID PRN Ibuprofen [Motrin Bulk Bottle] 600 mg PO Q6H PRN Assess Lochia [WOMSER] Per Unit Routine Assess Uterine Involution [WOMSER] Per Unit Routine Ice Therapy [OM.PC] Per Unit Routine Perineal Care [OM.PC] Per Unit Routine Sitz Bath [OM.PC] Per Unit Routine 09/27/19 Breakfast Regular Diet [DIET] 09/28/19 07:30 Acetaminophen [Tylenol Bulk Bottle] 325 - 650 mg PO Q4H PRN - Assessment Assessment:: 09/27/2019 28 yo G1 now P1 delivered without complications 09/28/2019 without complications day one well Fundus firm and bleeding decreasing Hgb 11.9 Happy about delivery Planning discharge home tomorrow - Plan Plan:: 09/27/2019 28 yo here at 39 2/7 weeks gestation for induction of labor due to possible macrosomia of and hip dislocation issues She is agreeable to this plan and desires induction of labor FHTs category one SVE-1-/-2 Cytotec 50mg placed vaginally BPP done prior 04/19, NST reactive Labs-O positive, Hep B neg, Hep C neg, HIV neg, RPR nonreactive, GBS negative, Rubella Immune Plan- Cytotec now Monitor for active labor Monitor FHTs Pain management per patient request Patient up ad ly Patient can eat regular diet Plan and anticipate a vaginal delivery 09/27/2019 Routine cares Encourage and support Plan discharge in 24-72 hours 09/28/2019 Continue routine cares Continue to encourage and support Plan discharge tomorrow
--- NOTE | 2019-09-29 09:33 | PCM.PNPP ---
- General Info Date of Service: 09/29/19 - Review of Systems General: Reports: No Symptoms HEENT: Reports: No Symptoms Pulmonary: Reports: No Symptoms Cardiovascular: Reports: No Symptoms Gastrointestinal: Reports: No Symptoms Genitourinary: Reports: No Symptoms Musculoskeletal: Reports: No Symptoms Skin: Reports: No Symptoms Neurological: Reports: No Symptoms Psychiatric: Reports: No Symptoms - General Info Date of Service: 09/29/19 - Patient Data Vital Signs - Most Recent: Last Vital Signs Temp 36.7 C 09/29/19 07:38 Pulse 87 09/29/19 07:38 Resp 15 09/29/19 07:38 BP 119/80 09/29/19 07:38 Pulse Ox 99 09/29/19 07:38 Weight - Most Recent: 84.368 kg I&O - Last 24 Hours: Intake & Output 09/28/19 09/29/19 09/29/19 22:59 06:59 14:59 Intake Total 800 Balance 800 Med Orders - Current: Current Medications Acetaminophen (Tylenol Bulk Bottle) 325 - 650 mg PO Q4H PRN PRN Reason: Pain Diphenhydramine HCl (Benadryl) 25 mg IVPUSH Q6H PRN PRN Reason: Itching Diphenhydramine HCl (Benadryl) 50 mg IVPUSH Q6H PRN PRN Reason: Itching Docusate Sodium (Colace) 100 mg PO BID PRN PRN Reason: Constipation Ephedrine Sulfate (Ephedrine Sulfate) 10 mg IVPUSH ASDIRECTED PRN PRN Reason: Hypotension Fentanyl (Sublimaze) 100 mcg IVPUSH Q1H PRN PRN Reason: Pain (moderate 4-6) Lactated Ringer's (Ringers, Lactated) 1,000 mls @ 125 mls/hr IV ASDIRECTED KYRA Ropivacaine 200 mg/ Premix 100 mls @ 0 mls/hr EPIDUR ASDIRECTED KYRA Ibuprofen (Motrin Bulk Bottle) 600 mg PO Q6H PRN PRN Reason: Pain Last Admin: 09/27/19 23:25 Dose: 600 mg Naloxone HCl (Narcan) 0.1 mg IVPUSH ASDIRECTED PRN PRN Reason: Oversedation Sodium Chloride (Saline Flush) 10 ml FLUSH ASDIRECTED PRN PRN Reason: Keep Vein Open Discontinued Medications Acetaminophen (Tylenol) 650 mg PO Q4H PRN PRN Reason: Pain (Mild 1-3) and fever Acetaminophen (Tylenol Bulk Bottle) 0 mg PO Q4H PRN PRN Reason: Pain Stop: 09/28/19 07:30 Last Admin: 09/27/19 23:26 Dose: 650 mg Benzocaine (Lkds-O-Yccvkal 20% [place]) 0 gm TOP ONETIME ONE Stop: 09/27/19 21:47 Last Admin: 09/27/19 23:23 Dose: 1 spray Emollient Ointment (Lansinoh Hpa) 1 gm TOP ONETIME ONE Stop: 09/27/19 21:47 Last Admin: 09/27/19 23:22 Dose: 1 applic Fentanyl (Sublimaze) Confirm Administered Dose 100 mcg .ROUTE .STK-MED ONE Stop: 09/27/19 17:25 Lactated Ringer's (Ringers, Lactated) 1,000 mls @ 999 mls/hr IV ASDIRECTED [facility] Last Admin: 09/27/19 11:59 Dose: 999 mls/hr Lactated Ringer's (Ringers, Lactated) 1,000 mls @ 999 mls/hr IV ASDIRECTED [facility] Last Infusion: 09/27/19 17:05 Dose: 999 mls/hr Ropivacaine (Naropin 0.2%) Confirm Administered Dose 100 mls @ as directed .ROUTE .STK-MED ONE Stop: 09/27/19 17:25 Oxytocin/Sodium Chloride (Pitocin In Ns 20 Units/1,000 Ml) 20 unit in 1,000 mls @ 999 mls/hr IV ONETIME ONE; Protocol Stop: 09/27/19 18:29 Last Admin: 09/27/19 19:01 Dose: 999 mls/hr, 999 mls/hr Lidocaine HCl (Xylocaine 1%) Confirm Administered Dose 100 ml .ROUTE .STK-MED ONE Stop: 09/27/19 19:59 Last Admin: 09/27/19 23:02 Dose: Not Given Misoprostol (Cytotec) 50 mcg VAG ONETIME ONE Stop: 09/27/19 08:46 Last Admin: 09/27/19 08:35 Dose: 50 mcg Misoprostol (Cytotec) 50 mcg VAG ONETIME ONE Stop: 09/27/19 13:01 Last Admin: 09/27/19 15:26 Dose: Not Given Oxytocin (Pitocin) Confirm Administered Dose 10 unit .ROUTE .STK-MED ONE Stop: 09/27/19 19:58 Last Admin: 09/27/19 23:02 Dose: Not Given Witadam Giulia (Tucks) 1 pad TOP ONETIME ONE Stop: 09/27/19 21:47 Last Admin: 09/27/19 23:23 Dose: 1 applicful - Interaction Disposition, : at Bedside Infant Interaction: Holding Infant Infant Feeding: Breastfed Infant; Nursed Well Support Person: - Recovery Exam Fundal Tone: Firm Fundal Level: At Umbilicus Fundal Placement: Midline Lochia Amount: Small Lochia Color: Rubra/Red Perineum Description: Intact, Minimal Bruising/Swelling Episiotomy/Laceration: None Bladder Status: Voiding - Exam General: Alert, Oriented, Cooperative HEENT: Pupils Equal, Pupils Reactive, EOMI, Mucous Membr. Moist/Halfway Neck: Supple Lungs: Clear to Auscultation, Normal Respiratory Effort Cardiovascular: Regular Rate, Regular Rhythm GI/Abdominal Exam: Normal Bowel Sounds, Soft, Non-Tender, No Organomegaly, No Distention, No Abnormal Bruit, No Mass, Pelvis Stable Extremities: Normal Inspection, Normal Range of Motion, Non-Tender, No Pedal Edema, Normal Capillary Refill Skin: Warm, Dry, Intact Neurological: No New Focal Deficit Psy/Mental Status: Alert, Normal Affect, Normal Mood - Problem List & Annotations (1) SNOMED Code(s): 45662127 Code(s): Z34.90 - ENCNTR FOR SUPRVSN OF NORMAL , UNSP, UNSP TRIMESTER Status: Acute Current Visit: Yes Qualifiers: Weeks of gestation: 39 weeks Qualified Code(s): Z3A.39 - 39 weeks gestation of (2) Encounter for induction of labor SNOMED Code(s): 415801288 Code(s): Z34.90 - ENCNTR FOR SUPRVSN OF NORMAL , UNSP, UNSP TRIMESTER Status: Acute Current Visit: Yes (3) Vaginal delivery SNOMED Code(s): 131220734 Code(s): O80 - ENCOUNTER FOR FULL-TERM UNCOMPLICATED DELIVERY Status: Acute Current Visit: Yes (4) Thin meconium stained amniotic fluid SNOMED Code(s): 703392244 Code(s): P96.83 - MECONIUM STAINING Status: Acute Current Visit: Yes (5) Labor and delivery complicated by meconium in amniotic fluid SNOMED Code(s): 672513222 Code(s): O77.0 - LABOR AND DELIVERY COMPLICATED BY MECONIUM IN AMNIOTIC FLUID Status: Acute Current Visit: Yes (6) (infant) SNOMED Code(s): 940978397 Code(s): Z78.9 - OTHER SPECIFIED HEALTH STATUS Status: Acute Current Visit: Yes - Problem List Review Problem List Initiated/Reviewed/Updated: Yes - Assessment Assessment:: 09/27/2019 28 yo G1 now P1 delivered without complications 09/28/2019 without complications day one well Fundus firm and bleeding decreasing Hgb 11.9 Happy about delivery Planning discharge home tomorrow 09/29/2019 without complications day two well Fundus firm and bleeding decreasing Voiding and passing gas Planning discharge home today - Plan Plan:: 09/27/2019 28 yo here at 39 2/7 weeks gestation for induction of labor due to possible macrosomia of infant and hip dislocation issues She is agreeable to this plan and desires induction of labor FHTs category one SVE-1-2/70/-2 Cytotec 50mg placed vaginally BPP done prior 04/19, NST reactive Labs-O positive, Hep B neg, Hep C neg, HIV neg, RPR nonreactive, GBS negative, Rubella Immune Plan- Cytotec now Monitor for active labor Monitor FHTs Pain management per patient request Patient up ad [place] Patient can eat regular diet Plan and anticipate a vaginal delivery 09/27/2019 Routine cares Encourage and support Plan discharge in 24-72 hours 09/28/2019 Continue routine cares Continue to encourage and support Plan discharge tomorrow 09/29/2019 Continue routine cares Continue to encourage and support Plan discharge today To see me for visit in 6 weeks
== END 2019-09-29 13:25 | disposition home or self-care (01) | DRG 807 ==
LOC: JP.OB 06:51 → OBSVTOIN 21:25 → JP.MS 22:00
PROVIDERS: ADMIT Advanced Practice Midwife; ATTEND Advanced Practice Midwife
PROC: 10E0XZZ Delivery of Products of Conception, External Approach (ICD-10-PCS; principal; 2019-09-27)
PROC: 3E0P7VZ Introduction of Hormone into Female Reproductive, Via Natural or Artificial Opening (ICD-10-PCS; 2019-09-27)
PROC: 10907ZC Drainage of Amniotic Fluid, Therapeutic from Products of Conception, Via Natural or Artificial Opening (ICD-10-PCS; 2019-09-27)
PROC: 3E0R3BZ Introduction of Anesthetic Agent into Spinal Canal, Percutaneous Approach (ICD-10-PCS; 2019-09-27)
PROC: 00HU33Z Insertion of Infusion Device into Spinal Canal, Percutaneous Approach (ICD-10-PCS; 2019-09-27)
DX: O69.81X0 Labor and delivery complicated by cord around neck, without compression, not applicable or unspecified (principal); O77.0 Labor and delivery complicated by meconium in amniotic fluid; Z37.0 Single live birth; Z3A.39 39 weeks gestation of pregnancy
CPT/HCPCS: 36415; 51702; 59409; 76819; 80305-QW; 81003; 85025; 99211; A9270-GY; J2590; J2795; J3010; J7120

== ENCOUNTER 2023-04-08 19:20 | Emergency (ER) | payer OTHER ==
[2023-04-08] MEDS ORDERED: droPERidol 5 MG/2 ML SDV IVPUSH ONE (20:15)
== END 2023-04-08 22:29 | disposition home or self-care (01) ==
LOC: JP.ED 19:20
DX: M79.672 Pain in left foot (principal); R55 Syncope and collapse; H54.61 Unqualified visual loss, right eye, normal vision left eye; R07.89 Other chest pain; Z91.048 Other nonmedicinal substance allergy status; V89.2XXA Person injured in unspecified motor-vehicle accident, traffic, initial encounter; Y92.410 Unspecified street and highway as the place of occurrence of the external cause
CPT/HCPCS: 70450; 71046; 73610; 73630; 96374; 99285; J1790